=== PATIENT | female | born 1980 | race Caucasian/White ===

== ENCOUNTER 2016-05-17 12:55 | Emergency (ER) | payer OTHER ==
[~2016-05-17] VITALS: Ht 172.7 cm; Wt 110.4 kg
[~2016-05-17 12:55] MED LIST: ALBUAER2 INH; AMIT10TA6 PO; BUPR75TA8 PO; SUMA1INJ5 IM
[2016-05-17 13:04] VITALS: TEMP 36.7; Ht 172.7 cm; Wt 110.4 kg
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
[2016-05-17] MEDS ORDERED: VNTHFA/IN INH (14:01)
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
[2016-05-17] MEDS ORDERED: OXYC1TAB3 PO (14:52)
[2016-05-17 15:09] VITALS: BP 117/76; PULSE 80; O2SAT 100
== END 2016-05-17 15:10 | disposition home or self-care (01) ==
LOC: C.EDB 12:56 → C.EDD 15:10
DX: S06.0X0A Concussion without loss of consciousness, initial encounter (principal); M54.2 Cervicalgia; V43.52XA Car driver injured in collision with other type car in traffic accident, initial encounter; J45.909 Unspecified asthma, uncomplicated; K82.9 Disease of gallbladder, unspecified; F17.210 Nicotine dependence, cigarettes, uncomplicated; Z79.899 Other long term (current) drug therapy

== ENCOUNTER 2016-11-16 13:13 | Emergency (ER) | payer OTHER ==
[~2016-11-16] VITALS: Ht 172.7 cm; Wt 107.0 kg
[~2016-11-16 13:13] MED LIST changes: -ALBUAER2 INH; +OXYC1TAB3 PO; +VNTHFA/IN INH
[2016-11-16 13:15] VITALS: TEMP 36.5; Ht 172.7 cm; Wt 107.0 kg
--- NOTE | 2016-11-16 13:32 | EMERGENCY ROOM VISIT NOTE ---
History Report prepared by Hawa: Thanh Jim Under the Supervision of: Dr. Esvin Caba M.D. First contact with patient: 13:22 Chief Complaint: BITE Stated Complaint: SPIDER BITE-WORK RELATED INJURY History of Present Illness The patient is a 36 year old female who presents to the Emergency Room with complaints of a constant rash to the left calf that occurred two days ago. The patient states that she was getting ready to go to break at work and received a call. She reports that she received a call and during the call she was bit. The patient notes that she rubbed her legs together, and it immediately turned red. She states that she was not able to identify what bit her, but she presumes it was a spider. She denies being bit by a tick. The patient reports that it started to swell and was warm. She states that she went to [facility] and was given a steroid injection and was placed on Cephalexin, three times a day, and she just started it last night. The patient reports that it is currently itchy and red. She notes that when she walks, it feels like her calf muscle is being pulled down, and it is tight. The patient states that she is taking Benadryl, but it makes her too sleepy. She reports that she tried using hydrocortisone cream, but when it dries, it gets even itchier. The patient notes that she was bitten by a spider last year, and it caused an infection. She states that her tetanus is up to date. The patient denies a history of diabetes mellitus. Source of History: patient Onset: two days ago Position: leg (left) Quality: other (rash) Timing: constant Note: Associated symptoms: warmth, erythema, calf tenderness, edema, pruritic Denies: tick bite Review of Systems See HPI for pertinent positives & negatives. A total of 10 systems reviewed and were otherwise negative. Past Medical & Surgical Medical Problems: (1) Asthma (2) Bronchitis (3) Gall bladder disease (4) Pneumonia (5) Stomach problems Family History FH: heart disease FH: lung disease FHx: cancer FHx: gallbladder disease Hypertension Social History Smoking Status: Current Every Day Smoker Alcohol Use: none Drug Use: none Marital Status: Housing Status: lives with family Occupation Status: employed Current/Historical Medications Scheduled Amitriptyline Hcl (Elavil), 10 MG PO HS Bupropion Hcl (Wellbutrin), 75 MG PO DAILY Cephalexin Monohydrate (Keflex), 500 MG PO TID Prednisone (Prednisone), 1 TAB PO DAILY Sulfa/Trimethoprim (Bactrim Ds 800MG/160MG), 1 TAB PO BID Scheduled PRN Albuterol Hfa (Ventolin Hfa), 2 PUFFS INH Q6H PRN for Shortness of Breath Cyclobenzaprine Hcl (Flexeril), 10 MG PO HS PRN for Muscle Spasms Sumatriptan Succinate (Sumatriptan Succinate), 6 MG IM UD PRN for Migraine Allergies Coded Allergies: Aspirin (Verified Allergy, Unknown, 05/17/16) Physical Exam Vital Signs Date Time Temp Pulse Resp B/P (MAP) Pulse Ox O2 Delivery O2 Flow Rate FiO2 11/16/16 16:04 72 18 118/66 98 Room Air 11/16/16 15:16 93 18 107/68 96 Room Air 11/16/16 13:15 36.5 115 14 124/83 96 Room Air Physical Exam GENERAL: Patient is in no acute distress. HEENT: No acute trauma, normocephalic atraumatic, mucous membranes moist, no nasal congestion, no scleral icterus. NECK: No stridor, no adenopathy, no meningismus, trachea is midline. LUNGS: Clear to auscultation bilaterally, no wheeze, no rhonchi, breath sounds equal. HEART: Without murmurs gallops or rubs, regular rate and rhythm. ABDOMEN: Soft, nontender, bowel sounds positive, no hernias, no peritonitis. EXTREMITIES: 4 cm erythematous and tender lesion to the left posterior calf. No drainage, mild tenderness to palpate, no fluctuance. The lesion was outlined. NEUROLOGIC: Oriented x 3, no acute motor or sensory deficits, no focal weakness. SKIN: No jaundice, no diaphoresis. Medical Decision & Procedures ER Provider Diagnostic Interpretation: Radiology results as stated below per my review and radiologist interpretation: EXTREMITY NONVASCULAR LIMITED CLINICAL HISTORY: 36 years-old Female presenting with left leg--poss abscess or FB, possible bite. TECHNIQUE: Real-time grayscale ultrasound imaging of the left medial calf at the site of clinical concern was performed. Color Doppler was also performed. COMPARISON: None. FINDINGS: In the medial left calf at the site of clinical concern, no focal fluid collection. No hyperemia. Mild thickening of the subcutaneous tissue may be present. No dilated lymphatics. IMPRESSION: 1. No significant abnormality in the medial left calf. Electronically signed by: Franck Dunham M.D. 11/16/2016 3:13 PM Dictated Date/Time: 11/16/2016 3:11 PM Laboratory Results 11/16/16 13:35 Red Blood Count 4.48, Mean Corpuscular Volume 89.1, Mean Corpuscular Hemoglobin 30.1, Mean Corpuscular Hemoglobin Concent 33.8, Mean Platelet Volume 11.6, Neutrophils (%) (Auto) 84.2, Lymphocytes (%) (Auto) 10.9, Monocytes (%) (Auto) 4.3, Eosinophils (%) (Auto) 0.3, Basophils (%) (Auto) 0.1, Neutrophils # (Auto) 15.15, Lymphocytes # (Auto) 1.97, Monocytes # (Auto) 0.78, Eosinophils # (Auto) 0.06, Basophils # (Auto) 0.01 11/16/16 13:35 Test 11/16/16 13:35 White Blood Count 18.01 K/uL (4.8-10.8) Red Blood Count 4.48 M/uL (4.2-5.4) Hemoglobin 13.5 g/dL (12.0-16.0) Hematocrit 39.9 % (37-47) Mean Corpuscular Volume 89.1 fL (80-100) Mean Corpuscular Hemoglobin 30.1 pg (25-34) Mean Corpuscular Hemoglobin Concent 33.8 g/dl (32-36) Platelet Count 227 K/uL (130-400) Mean Platelet Volume 11.6 fL (7.4-10.4) Neutrophils (%) (Auto) 84.2 % Lymphocytes (%) (Auto) 10.9 % Monocytes (%) (Auto) 4.3 % Eosinophils (%) (Auto) 0.3 % Basophils (%) (Auto) 0.1 % Neutrophils # (Auto) 15.15 K/uL (1.4-6.5) Lymphocytes # (Auto) 1.97 K/uL (1.2-3.4) Monocytes # (Auto) 0.78 K/uL (0.11-0.59) Eosinophils # (Auto) 0.06 K/uL (0-0.5) Basophils # (Auto) 0.01 K/uL (0-0.2) RDW Standard Deviation 45.2 fL (36.4-46.3) RDW Coefficient of Variation 13.8 % (11.5-14.5) Immature Granulocyte % (Auto) 0.2 % Immature Granulocyte # (Auto) 0.04 K/uL (0.00-0.02) Anion Gap 11.0 mmol/L (3-11) Est Creatinine Clear Calc Drug Dose 102.8 ml/min Estimated GFR () 88.1 Estimated GFR (Non- 76.0 BUN/Creatinine Ratio 10.1 (10-20) Calcium Level 9.0 mg/dl (8.5-10.1) Chemistry Specimen Hemolysis Laboratory results reviewed by me. ED Course 1322: The patient was evaluated in room B06. A complete history and physical exam was performed. 1542: Reevaluated the patient. Discussed results and discharge instructions: she verbalized understanding and agreement. The patient is ready for discharge. Medical Decision Differential diagnosis includes: large local reaction, insect or spider bite, cellulitis, abscess There is a moderate leukocytosis at 18,000, this could be consistent with infection or her steroid injection. No anemia. No significant electrolyte abnormality or kidney failure. Left leg ultrasound does not show abscess or foreign body. The patient has a localized cellulitis to the left lower extremity from a presumed insect bite. She is on Keflex. I am going to add Bactrim for the possibility of an MRSA. She also will be on a small dose of prednisone to help with the itching-she does not do well with Benadryl. The patient is to return for fever, vomiting or lack of improvement. She can follow with her doctors office for a recheck next week. She was told to keep her leg elevated whenever possible. Impression Primary Impression: Left leg cellulitis Additional Impression: Insect bite Scribe Attestation The scribe's documentation has been prepared under my direction and personally reviewed by me in its entirety. I confirm that the note above accurately reflects all work, treatment, procedures, and medical decision making performed by me. Departure Information Dispostion Home / Self-Care Prescriptions Prednisone (Prednisone) 20 Mg Tab 1 TAB PO DAILY for 4 Days, #4 TAB Prov: Esvin Caba M.D. 11/16/16 Sulfa/Trimethoprim (Bactrim Ds 800MG/160MG) Tab 1 TAB PO BID for 10 Days, #20 TAB Prov: Esvin Caba M.D. 11/16/16 Referrals Arnold Bosch M.D.(ARIEL) (PCP) Forms HOME CARE DOCUMENTATION FORM, IMPORTANT VISIT INFORMATION, Work Instructions Patient Instructions My [facility] Additional Instructions continue the kefelx add bactrim 2x per day for 10 days start probiotic otc while on the antibiotics prednisone daily for 4 more days try to keep the leg elevated return for fever, worsening redness or fever Problem Qualifiers
[2016-11-16] MEDS ORDERED: CYCL10TA6 PO (13:51)
[2016-11-16] MEDS ORDERED: CEPH500C2 PO (13:51)
[2016-11-16 14:33] LABS: BASO % 0.1 %; BASO ABS # 0.01 K/uL (0-0.2); COMPLETE YES; EOS % 0.3 %; HEMATOCRIT 39.9 % (37-47); IG% 0.2 %; LYMPH % 10.9 %; LYMPH ABS # 1.97 K/uL (1.2-3.4); MEAN CELL VOLUME 89.1 fL (80-100); MEAN CORPUSCULAR HEMOGLOBIN 30.1 pg (25-34); MEAN CORPUSCULAR HGB CONC 33.8 g/dl (32-36); MEAN PLATELET VOLUME 11.6 fL (7.4-10.4); MONO % 4.3 %; NEUT % 84.2 %; PLATELET COUNT 227 K/uL (130-400); RED BLOOD COUNT 4.48 M/uL (4.2-5.4); WHITE BLOOD COUNT 18.01 K/uL (4.8-10.8)
[2016-11-16 15:06] LABS: BUN/CREATININE RATIO 10.1 (10-20); CREATININE 0.95 mg/dl (0.60-1.20); POTASSIUM 3.8 mmol/L (3.5-5.1)
--- NOTE | 2016-11-16 15:14 | DIAGNOSTIC IMAGING REPORT ---
EXTREMITY NONVASCULAR LIMITED CLINICAL HISTORY: 36 years-old Female presenting with left leg--poss abscess or FB, possible bite. TECHNIQUE: Real-time grayscale ultrasound imaging of the left medial calf at the site of clinical concern was performed. Color Doppler was also performed. COMPARISON: None. FINDINGS: In the medial left calf at the site of clinical concern, no focal fluid collection. No hyperemia. Mild thickening of the subcutaneous tissue may be present. No dilated lymphatics. IMPRESSION: 1. No significant abnormality in the medial left calf. Electronically signed by: Franck Dunham M.D. 11/16/2016 3:13 PM Dictated Date/Time: 11/16/2016 3:11 PM
[2016-11-16] MEDS ORDERED: PRED20TA PO (15:52)
[2016-11-16] MEDS ORDERED: SULF800T23 PO (15:52)
[2016-11-16 16:04] VITALS: BP 118/66; PULSE 72; O2SAT 98
== END 2016-11-16 16:30 | disposition home or self-care (01) ==
LOC: C.EDB 13:14
DX: L03.116 Cellulitis of left lower limb (principal); W57.XXXA Bitten or stung by nonvenomous insect and other nonvenomous arthropods, initial encounter; J45.909 Unspecified asthma, uncomplicated; Z82.49 Family history of ischemic heart disease and other diseases of the circulatory system; F17.200 Nicotine dependence, unspecified, uncomplicated

== ENCOUNTER 2017-04-13 22:38 | Emergency (ER) | payer OTHER ==
[~2017-04-13] VITALS: Ht 172.7 cm; Wt 105.8 kg
[~2017-04-13 22:38] MED LIST changes: +CEPH500C2 PO; +CYCL10TA6 PO; -OXYC1TAB3 PO
[2017-04-13 22:39] VITALS: TEMP 36.4; Ht 172.7 cm; Wt 105.8 kg
[2017-04-13] MEDS ORDERED: ALBUT/IPRATROP 3MG/0.5MG NEB 3 ML VIAL INH STA ×2 (22:44→23:57)
[2017-04-13] MEDS ORDERED: KETOROLAC TROMETHAMINE 30 MG/ML VIAL IV STA (22:44)
[2017-04-13] MEDS ORDERED: DEXAMETHASONE **PF** INJ 10 MG/ML VIAL IV ONE (22:45)
--- NOTE | 2017-04-13 23:00 | DIAGNOSTIC IMAGING REPORT ---
CHEST ONE VIEW PORTABLE CLINICAL HISTORY: Atypical chest pain COMPARISON STUDY: 05/17/2016 FINDINGS: The cardiac and mediastinal contours are normal. There is no evidence of focal pulmonary consolidation. There is no evidence of failure. No pleural effusions are visualized.[ IMPRESSION: No active disease in the chest. Electronically signed by: Derik Fan M.D. 04/13/2017 10:58 PM Dictated Date/Time: 04/13/2017 10:58 PM
[2017-04-13 23:04] VITALS: O2SAT 94
[2017-04-13 23:12] LABS: BASO % 0.4 %; BASO ABS # 0.04 K/uL (0-0.2); COMPLETE YES; IG% 0.1 %; LYMPH % 26.6 %; LYMPH ABS # 2.43 K/uL (1.2-3.4); MEAN CELL VOLUME 87.4 fL (80-100); MEAN CORPUSCULAR HEMOGLOBIN 30.3 pg (25-34); MEAN CORPUSCULAR HGB CONC 34.7 g/dl (32-36); MEAN PLATELET VOLUME 11.1 fL (7.4-10.4); MONO % 10.2 %; NEUT % 60.7 %; PLATELET COUNT 192 K/uL (130-400); RED BLOOD COUNT 4.35 M/uL (4.2-5.4); WHITE BLOOD COUNT 9.14 K/uL (4.8-10.8)
[2017-04-13 23:20] LABS: POINT OF CARE TROPONIN I < 0.030 ng/ml (0-0.045)
[2017-04-13 23:31] LABS: ALT/SGPT 24 U/L (12-78); BLOOD UREA NITROGEN 10 mg/dl (7-18); BUN/CREATININE RATIO 10.9 (10-20); CALCIUM 8.5 mg/dl (8.5-10.1); CARBON DIOXIDE 25 mmol/L (21-32); CHLORIDE 107 mmol/L (98-107); CREATININE 0.94 mg/dl (0.60-1.20); GLUCOSE 100 mg/dl (70-99); POTASSIUM 3.3 mmol/L (3.5-5.1); SODIUM 139 mmol/L (136-145)
[2017-04-13 23:34] LABS: ALKALINE PHOSPHATASE 78 U/L (45-117); AST/SGOT 14 U/L (15-37)
[2017-04-13 23:37] LABS: PREG INTERNAL NEGATIVE QC NEG CLEAR BACKGROUND; PREG INTERNAL POSITIVE QC POS CONTROL LINE
[2017-04-13] MEDS ORDERED: POTASSIUM CHLORIDE 10 MEQ TABCR PO STA (23:38)
[2017-04-13] MEDS ORDERED: LIDOCAINE HCL 2% VISC SOLN 20 ML UDC MT STA (23:59)
[2017-04-14] MEDS ORDERED: ACETAMINOPHEN 500 MG TAB PO ONE (00:41)
[2017-04-14] MEDS ORDERED: ACETAMINOPHEN 500 MG TAB PO STA (01:12)
[2017-04-14] MEDS ORDERED: ALBUTEROL HFA 8 GM INHALER INH STA (01:26)
[2017-04-14] MEDS ORDERED: LIDO2SOL19 PO (01:28)
[2017-04-14] MEDS ORDERED: PRED50TA PO (01:28)
[2017-04-14 01:59] VITALS: BP 90/53; PULSE 76; O2SAT 95
--- NOTE | 2017-04-14 02:09 | EMERGENCY ROOM VISIT NOTE ---
History First contact with patient: 22:41 Chief Complaint: COUGH Stated Complaint: SEVERE COUGH, CHEST PAIN, SOB, BACK PAIN Nursing Triage Summary: pt c/o cough since sunday, chest congestion History of Present Illness The patient is a 37 year old female who presents to the Emergency Room with complaints of cough, congestion, chest pain, dyspnea for the past week who was seen at urgent care. Patient states they did nothing for her. Patient continues to smoke. She is not on control. No recent travel. Patient states the coughing makes the chest pain worse. No fever. She's had bronchitis before and has asthma. Patient denies abdominal pain, vomiting, diarrhea, earache, neck stiffness. She is tolerate by mouth fluids and food. Review of Systems See HPI for pertinent positives & negatives. A total of 10 systems reviewed and were otherwise negative. Past Medical/Surgical History Medical Problems: (1) Asthma (2) Bronchitis (3) Gall bladder disease (4) Pneumonia (5) Stomach problems Family History FH: heart disease FH: lung disease FHx: cancer FHx: gallbladder disease Hypertension Social History Smoking Status: Current Some Day Smoker Alcohol Use: none Drug Use: none Marital Status: Housing Status: lives with family Occupation Status: employed Current/Historical Medications Scheduled Amitriptyline Hcl (Elavil), 10 MG PO HS Bupropion Hcl (Wellbutrin), 75 MG PO DAILY Cephalexin Monohydrate (Keflex), 500 MG PO TID Lidocaine Hcl (Mouth-Throat) (Lidocaine Viscous), 10 ML PO TID Prednisone (Prednisone), 50 MG PO DAILY Scheduled PRN Albuterol Hfa (Ventolin Hfa), 2 PUFFS INH Q6H PRN for Shortness of Breath Cyclobenzaprine Hcl (Flexeril), 10 MG PO HS PRN for Muscle Spasms Sumatriptan Succinate (Sumatriptan Succinate), 6 MG IM UD PRN for Migraine Physical Exam Vital Signs Date Time Temp Pulse Resp B/P (MAP) Pulse Ox O2 Delivery O2 Flow Rate FiO2 04/14/17 01:59 76 18 90/53 95 04/14/17 01:00 100 18 96/60 95 Nasal Cannula 2.0 04/14/17 00:06 88 21 112/64 100 Nebulizer 04/13/17 23:14 105 04/13/17 23:05 94 Room Air 04/13/17 23:04 94 Nasal Cannula 12/22/17 22:39 36.4 108 20 125/84 94 Room Air Physical Exam VITALS: Vitals are noted on the nurse's note and reviewed by myself. Vital signs stable. GENERAL: White female coughing, in no acute distress, nondiaphoretic, well- developed well-nourished. SKIN: The skin was without rashes, erythema, edema, or bruising. There is no tenting of the skin. Capillary reflex less than 2 seconds. HEAD: Normocephalic atraumatic. EARS: External auditory canals clear, tympanic membranes pearly cole without erythema or effusion bilaterally. EYES: Pupils equal round and reactive to light and accommodation. Conjunctivae without injection, sclerae without icterus. Extraocular movements intact. NOSE: Patent, turbinates without inflammation or discharge. No sinus tenderness. MOUTH: Mucous membranes moist. Pharynx without erythema or exudate. Uvula midline. Airway patent. Tongue does not deviate. NECK: Supple without nuchal rigidity. No lymphadenopathy. No thyromegaly. Cervical spine is nontender. No JVD. HEART: Regular rate and rhythm without murmurs gallops or rubs. LUNGS: Diffuse end expiratory wheezes, without rales or rhonchi. No dullness to percussion. No retractions or accessory muscle use. ABDOMEN: Positive bowel sounds x 4. Normal tympanic percussion. Soft, nontender, without masses or organomegaly. Anthony sign negative. No guarding or rebound tenderness. MUSCULOSKELETAL: No muscle atrophy, erythema, or edema noted. NEURO: Patient was alert and oriented to person place and time. Normal sensation to light and sharp touch. No focal neurological deficits. Medical Decision & Procedures Laboratory Results 04/13/17 22:58 Red Blood Count 4.35, Mean Corpuscular Volume 87.4, Mean Corpuscular Hemoglobin 30.3, Mean Corpuscular Hemoglobin Concent 34.7, Mean Platelet Volume 11.1, Neutrophils (%) (Auto) 60.7, Lymphocytes (%) (Auto) 26.6, Monocytes (%) (Auto) 10.2, Eosinophils (%) (Auto) 2.0, Basophils (%) (Auto) 0.4, Neutrophils # (Auto ) 5.55, Lymphocytes # (Auto) 2.43, Monocytes # (Auto) 0.93, Eosinophils # (Auto ) 0.18, Basophils # (Auto) 0.04 04/13/17 22:58 Test 04/13/17 22:58 04/13/17 23:00 04/14/17 01:01 White Blood Count 9.14 K/uL (4.8-10.8) Red Blood Count 4.35 M/uL (4.2-5.4) Hemoglobin 13.2 g/dL (12.0-16.0) Hematocrit 38.0 % (37-47) Mean Corpuscular Volume 87.4 fL (80-100) Mean Corpuscular Hemoglobin 30.3 pg (25-34) Mean Corpuscular Hemoglobin Concent 34.7 g/dl (32-36) Platelet Count 192 K/uL (130-400) Mean Platelet Volume 11.1 fL (7.4-10.4) Neutrophils (%) (Auto) 60.7 % Lymphocytes (%) (Auto) 26.6 % Monocytes (%) (Auto) 10.2 % Eosinophils (%) (Auto) 2.0 % Basophils (%) (Auto) 0.4 % Neutrophils # (Auto) 5.55 K/uL (1.4-6.5) Lymphocytes # (Auto) 2.43 K/uL (1.2-3.4) Monocytes # (Auto) 0.93 K/uL (0.11-0.59) Eosinophils # (Auto) 0.18 K/uL (0-0.5) Basophils # (Auto) 0.04 K/uL (0-0.2) RDW Standard Deviation 43.0 fL (36.4-46.3) RDW Coefficient of Variation 13.3 % (11.5-14.5) Immature Granulocyte % (Auto) 0.1 % Immature Granulocyte # (Auto) 0.01 K/uL (0.00-0.02) Anion Gap 7.0 mmol/L (3-11) Est Creatinine Clear Calc Drug Dose 102.3 ml/min Estimated GFR () 88.6 Estimated GFR (Non- 76.4 BUN/Creatinine Ratio 10.9 (10-20) Calcium Level 8.5 mg/dl (8.5-10.1) Total Bilirubin 0.3 mg/dl (0.2-1) Direct Bilirubin < 0.1 mg/dl (0-0.2) Aspartate Amino Transf (AST/SGOT) 14 U/L (15-37) Alanine Aminotransferase (ALT/SGPT) 24 U/L (12-78) Alkaline Phosphatase 78 U/L (45-117) Total Protein 6.9 gm/dl (6.4-8.2) Albumin 3.6 gm/dl (3.4-5.0) Human Chorionic Gonadotropin, Qual NEG (NEG) Bedside D-Dimer 252 ng/mlFEU (0-450) Bedside Troponin I < 0.030 ng/ml (0-0.045) Medications Administered Medications (Trade) Dose Ordered Sig/Joon Route Start Time Stop Time Status Last Admin Dose Admin Albuterol/ Ipratropium (Duoneb) 3 ml NOW STAT INH 04/13/17 22:44 04/13/17 22:47 DC 04/13/17 23:00 3 ML Dexamethasone Sodium Phosphate (Dexamethasone Inj Pf) 10 mg NOW ONCE IV 04/13/17 22:45 04/13/17 22:48 DC 04/13/17 22:59 10 MG Ketorolac Tromethamine (Toradol Inj) 30 mg NOW STAT IV 04/13/17 22:44 04/13/17 22:47 DC 04/13/17 23:00 30 MG Potassium Chloride (Klor-Con M10) 20 meq NOW STAT PO 04/13/17 23:38 04/13/17 23:39 DC 04/14/17 00:00 20 MEQ Albuterol/ Ipratropium (Duoneb) 3 ml NOW STAT INH 04/13/17 23:57 04/13/17 23:59 DC 04/14/17 00:04 3 ML Lidocaine HCl (Viscous Lidocaine 2% Soln) 10 ml NOW STAT MT 04/13/17 23:59 04/14/17 00:00 DC 04/14/17 00:04 10 ML Acetaminophen (Tylenol Tab) 1,000 mg STK-MED ONCE PO 04/14/17 00:41 04/14/17 00:42 DC 04/14/17 00:44 1,000 MG Albuterol (Ventolin Hfa Inhaler) 2 puffs ONE STAT INH 04/14/17 01:26 04/14/17 01:27 DC 04/14/17 01:52 2 PUFFS ED Course Prior records/ancillary studies reviewed. Triage Nursing notes reviewed. The patient's history was concerning for cough, congestion and chest pain. Differential diagnosis: Etiologies such as cardiac ischemia, aortic dissection, pulmonary embolism, pneumonia, pneumothorax, musculoskeletal, infections, pericarditis, myocarditis , esophageal rupture, gastrointestinal, as well as others were entertained. Physical examination: As above. ER treatment provided: Nebulizer, Decadron, Toradol On reassessment the patient felt better. Diagnostic interpretation by me: The electrocardiogram was negative for pathologic change. Normal sinus, normal intervals, no acute ST-T wave changes. Impression normal sinus rhythm interpreted by myself The labs revealed negative troponin 2 greater than 2 hours apart Imaging studies: Chest x-ray as above CLINICAL HISTORY: Atypical chest pain COMPARISON STUDY: 05/17/2016 FINDINGS: The cardiac and mediastinal contours are normal. There is no evidence of focal pulmonary consolidation. There is no evidence of failure. No pleural effusions are visualized.[ IMPRESSION: No active disease in the chest. Electronically signed by: Derik Fan M.D. Exam and history seem consistent with asthmatic bronchitis with pleurisy causing her chest pain. Patient felt much better after being medicated as above. She is strongly encouraged to quit smoking. She is advised to take her medications as directed, rest, stay well-hydrated and to follow-up family care in a few days or here in the ER sooner for chest pain, difficulty breathing, worsening signs or symptoms or as needed. Patient had a normal EKG. 2 negative troponins. Negative d-dimer By the evaluation outlined above emergent etiologies such as cardiac ischemia, aortic dissection, pulmonary embolism, pneumonia, pneumothorax, pericarditis, myocarditis, gastrointestinal, as well as others were deemed relatively unlikely. The pt informed about the findings as listed above. All questions were answered and pleased with the treatment. Return instructions were outlined and the patient was discharged in stable condition. Outpatient prescription management: Prednisone, viscous lidocaine Referral: The patient was referred back to primary care physician for follow-up in 2 to 3 days for a recheck of the current condition. Case reviewed with my attending Medical Decision As above Impression Primary Impression: Asthmatic bronchitis Additional Impressions: Pleurisy Chest pain Departure Information Dispostion Home / Self-Care Condition GOOD Prescriptions Prednisone (Prednisone) 50 Mg Tab 50 MG PO DAILY for 4 Days, #4 TAB Prov: Lotus Up .JESSICA 04/14/17 Lidocaine Hcl (Mouth-Throat) (LIDOCAINE VISCOUS) 2 % Myesha 10 ML PO TID for 6 Days, #100 ML Prov: Lotus Up PA-C 04/14/17 Forms HOME CARE DOCUMENTATION FORM, Work Instructions, Return To Work: 2 days IMPORTANT VISIT INFORMATION Patient Instructions My [facility] Additional Instructions Albuterol Inhaler: Take 2 puffs four times daily for five days, then as needed. Prednisone 50mg: Once daily until the prescription is finished. It is best to take this earlier in the day as some patients note occasional difficulty falling asleep when taken in the late evening. Acetaminophen(Tylenol) may be used for fever or pain. Use 1000mg every six hours as needed. Avoid using more than 3000mg in a 24 hour period. (AND/OR) Ibuprofen(Motrin, Advil) may be used for fever or pain. Use 600mg every six hours as needed. Take with food. Avoid using more than 2400mg in a 24 hour period. Do not use 2400mg per day for more than three consecutive days without physician direction. Prolonged inappropriate use can lead to stomach upset or ulcers. Afrin nasal spray: 2-3 sprays to each nostril twice daily as needed for congestion. Do not use for more than 3-4 days because it can lead to worsening rebound congestion. Pseudoephedrine(Sudaphed): 30-60mg every 6 hours as needed for nasal congestion. Do not take this with other stimulant products or supplements. Rest and drink plenty of fluids. Controlling your fever with Tylenol and Ibuprofen as above will make you feel better. Wash your hands after nose blowing, sneezing, or coughing. Most germs are spread through contact, therefore improper hygiene may result in your close contacts and loved ones becoming ill just like you. Continue current medications. Return to the ER for severe headache, neck stiffness, chest pain, difficulty breathing, fevers, vomiting, worsening of your condition, or as needed. Follow up with your primary physician this week for a recheck of your current condition. Work Instructions Return To Work: 2 days Problem Qualifiers Primary Impression: Asthmatic bronchitis Asthma severity: unspecified severity Asthma persistence: unspecified Asthma complication type: with acute exacerbation Qualified Codes: J45.901 - Unspecified asthma with (acute) exacerbation
== END 2017-04-14 02:00 | disposition home or self-care (01) ==
LOC: C.EDB 22:38 → C.EDA 04-14 02:00
DX: J45.909 Unspecified asthma, uncomplicated (principal); R09.1 Pleurisy; R07.9 Chest pain, unspecified; K82.9 Disease of gallbladder, unspecified; F17.200 Nicotine dependence, unspecified, uncomplicated; Z87.19 Personal history of other diseases of the digestive system; Z79.899 Other long term (current) drug therapy; Z82.49 Family history of ischemic heart disease and other diseases of the circulatory system; Z80.9 Family history of malignant neoplasm, unspecified; Z83.79 Family history of other diseases of the digestive system

== ENCOUNTER 2017-04-17 18:32 | Emergency (ER) | payer OTHER ==
[~2017-04-17] VITALS: Ht 172.7 cm; Wt 108.2 kg
[~2017-04-17 18:32] MED LIST changes: +LIDO2SOL19 PO; +PRED50TA PO
[2017-04-17 18:38] VITALS: BP 134/83; PULSE 89; TEMP 36.5; O2SAT 96; Ht 172.7 cm; Wt 108.2 kg
--- NOTE | 2017-04-17 19:39 | EMERGENCY ROOM VISIT NOTE ---
History Report prepared by Hawa: Ignacio Valentin Under the Supervision of: Dr. Werner Mantilla M.D. First contact with patient: 19:30 Chief Complaint: RESPIRATORY PROBLEMS Stated Complaint: SOB,CHEST PAIN,PERSISTANT COUGH Nursing Triage Summary: pt reports I was seen here a few days ago and given prednisone cough and mucus remain yellow and cough continues History of Present Illness The patient is a 37 year old white female with a past medical history of seasonal asthma who presents to the ED with a cc of persistent respiratory problems beginning about a week ago. Positive shortness of breath, cough with phlegm, vomiting. Negative coughing up blood. She states that she was seen here a few days ago for the respiratory problems, and was given a round of Prednisone , which she has finished. She adds that she has tried Mucinex and a Ventolin inhaler without any relief of her symptoms. The patient notes that when she coughs, she gets back pain with some numbness and tingling, as well as some chest pain. She does smoke cigarettes. The patient is not on control. Source of History: patient Onset: A week ago Position: other (global - respiratory problems) Symptom Intensity: Ventolin inhaler not working Timing: other (persistent) Associated Symptoms: + cough (no blood), + chest pain (when coughing), + SOB , + vomiting, + back pain (when coughing), + numbness (and tingling in back) Note: No other associated symptoms noted. Review of Systems See HPI for pertinent positives and negatives. A total of ten systems were reviewed and were otherwise negative. Past Medical & Surgical Medical Problems: (1) Asthma (2) Bronchitis (3) Gall bladder disease (4) Pneumonia (5) Stomach problems Family History FH: heart disease FH: lung disease FHx: cancer FHx: gallbladder disease Hypertension Social History Smoking Status: Current Every Day Smoker Alcohol Use: none Drug Use: none Marital Status: Housing Status: lives with family Occupation Status: employed Current/Historical Medications Scheduled Amitriptyline Hcl (Elavil), 10 MG PO HS Azithromycin (Zithromax), 250 MG PO DAILY Bupropion Hcl (Wellbutrin), 75 MG PO DAILY Cephalexin Monohydrate (Keflex), 500 MG PO TID Lidocaine Hcl (Mouth-Throat) (Lidocaine Viscous), 10 ML PO TID Prednisone (Prednisone), 50 MG PO DAILY Prednisone (Prednisone), 50 MG PO DAILY Scheduled PRN Albuterol Hfa (Ventolin Hfa), 2 PUFFS INH Q6H PRN for Shortness of Breath Cyclobenzaprine Hcl (Flexeril), 10 MG PO HS PRN for Muscle Spasms Hydrocodone W/ Homatropine (Hycodan 5/1.5MG 5 Ml), 5 ML PO Q6H PRN for Cough Sumatriptan Succinate (Sumatriptan Succinate), 6 MG IM UD PRN for Migraine Allergies Coded Allergies: Aspirin (Verified Allergy, Unknown, 05/17/16) Physical Exam Vital Signs Date Time Temp Pulse Resp B/P (MAP) Pulse Ox O2 Delivery O2 Flow Rate FiO2 04/17/17 18:38 36.5 89 20 134/83 96 Room Air Physical Exam GENERAL: Awake, alert, well-appearing, NAD HENT: Normocephalic, atraumatic. EYES: Normal conjunctiva. Sclera non-icteric. NECK: Supple. No nuchal rigidity. FROM. RESPIRATORY: Some trace crackles bilaterally. No rhonchi, wheezing, no stridor. CARDIAC: RRR, no MRG ABDOMEN: Soft, NTND, BS+ MSK: No chest wall TTP, no LE edema. No Homans sign. NEURO: GCS 15, CN 2-12 intact, moves all 4s on command SKIN: No rash or jaundice noted. Medical Decision & Procedures ER Provider Diagnostic Interpretation: X-ray: Per my interpretation, radiologist review. CHEST ONE VIEW PORTABLE CLINICAL HISTORY: Cough. COMPARISON STUDY: Chest radiograph April 13, 2017. FINDINGS: Lung volumes are normal. There is no pneumothorax or pleural effusion. No consolidation to suggest pneumonia. Cardiomediastinal silhouette is stable. Pulmonary vascularity is normal. Appearance of the chest is unchanged. IMPRESSION: No acute cardiopulmonary findings. Electronically signed by: Bandar Tay M.D. 04/17/2017 8:26 PM Dictated Date/Time: 04/17/2017 8:26 PM Medications Administered Medications (Trade) Dose Ordered Sig/Joon Route Start Time Stop Time Status Last Admin Dose Admin Dexamethasone Sodium Phosphate (Dexamethasone Inj Pf) 10 mg ONE STAT PO 04/17/17 19:43 04/17/17 19:45 DC 04/17/17 19:59 10 MG Albuterol/ Ipratropium (Duoneb) 3 ml ONE STAT INH 04/17/17 19:43 04/17/17 19:45 DC 04/17/17 19:58 3 ML Ketorolac Tromethamine (Toradol Inj) 60 mg NOW STAT IM 04/17/17 19:43 04/17/17 19:45 DC 04/17/17 19:58 60 MG Acetaminophen (Tylenol Tab) 1,000 mg NOW STAT PO 04/17/17 19:43 04/17/17 19:45 DC 04/17/17 19:59 1,000 MG Menthol (Nice Neela) 1 neela NOW STAT PO 04/17/17 19:43 04/17/17 19:45 DC 04/17/17 19:59 1 NEELA Azithromycin (Zithromax Tab) 500 mg NOW ONCE PO 04/17/17 20:00 04/17/17 20:01 DC 04/17/17 19:59 500 MG ECG Indication: SOB/dyspnea Rate (beats per minute): 84 Rhythm: normal sinus Findings: other (normal intervals, normal axis, no STS changes or TWI) Change: no significant change ED Course 193: The patient was evaluated in room B8. A complete history and physical exam was performed. Medical Decision The patient is a 37 year old white female with a past medical history of seasonal asthma who presents to the ED with a cc of persistent respiratory problems beginning about a week ago. Positive shortness of breath, cough with phlegm, vomiting. Negative coughing up blood. Differential diagnosis: Etiologies such as infections, reactive airway disease, pneumonia, pneumothorax , COPD, CHF, cardiac ischemia, pulmonary embolism, musculoskeletal, gastrointestinal, as well as others were entertained. Patient was seen and evaluated at the bedside. Patient has been complaining some mild chest pain shortness of breath. Patient does have a known history of asthma as well as recurrent bouts of bronchitis. Patient does complain of some purulent productive sputum that is been ongoing for about one weeks time. Patient was recently seen and evaluated here in the emergency department. Patient has had no major change in her symptoms but they just have not gotten better. At the time of initial evaluation a week ago the patient did have a normal d-dimer and troponin. Given that she had a fairly extensive workup prior without much change in her symptoms a repeat chest x-ray and EKG were performed. Patient's EKG looks unchanged patient does not show any signs of my interpretation of right heart strain. Patient is PERC ?1 as surgery 4 weeks prior. Wells 1.5 given recent surgery. Low risk. Less likely PE. Given the patient's history and physical exam I do not believe that she has ACS especially in light of her nonischemic EKG. Patient likely has an element of bronchitis given her chronic smoking history and productive sputum. Patient's chest x-ray was fairly unremarkable. Patient did not show evidence of overt pneumonia, pneumothorax, or pleural effusion. Patient was treated symptomatically. Patient was counseled on smoking cessation. Patient was given antibiotics for home. Patient was deemed suitable for outpatient follow- up and treatment. Patient was given strict follow-up, discharge, and return precautions. All questions were answered. Patient was deemed suitable for outpatient follow-up at this time. Patient agreed with the plan of care and was safely discharged home. Medication Reconcilliation Current Medication List: was personally reviewed by me Blood Pressure Screening Patient's blood pressure: Elevated blood pressure Blood pressure disposition: Elevated BP felt to be situational Impression Primary Impression: Encounter for smoking cessation counseling Additional Impression: Bronchitis Scribe Attestation The scribe's documentation has been prepared under my direction and personally reviewed by me in its entirety. I confirm that the note above accurately reflects all work, treatment, procedures, and medical decision making performed by me. Departure Information Dispostion Home / Self-Care Prescriptions Prednisone (PREDNISONE) 50 Mg Tab 50 MG PO DAILY for 4 Days, #4 TAB Prov: Werner Mantilla M.D. 04/17/17 Hydrocodone W/ Homatropine (HYCODAN 5/1.5MG 5 ML) 1 Syp Syp 5 ML PO Q6H Y for Cough, #60 ML Prov: Werner Mantilla M.D. 04/17/17 Azithromycin (Zithromax) 250 Mg Tab 250 MG PO DAILY, #4 TAB Prov: Werner Mantilla M.D. 04/17/17 Referrals Arnold Bosch M.D.([facility]) (PCP) Patient Instructions Bronchitis Acute, ED Smoking Cessation, My [facility] Additional Instructions Please return to the emergency department if you have worsening or recurrent symptoms not amenable to at-home treatment. Please call for a follow-up appointment with her primary care physician. Please take your medications as prescribed. If you have other concerns and/or complaints please feel free to also call your primary care physician's office or return the ED for further evaluation, management, and treatment. Please consider smoking cessation. You may take tylenol 1000 mg every 6 hours as needed for pain. Take the steroids preferably with food in the morning. You may also take a Pepcid or famotidine to help with GI upset Take your medications as prescribed. If taking an antibiotic consider taking a probiotic and/or eating yogurt, but at the least, please take with food as it can cause upset stomach. If culture results are not available at discharge, if they are positive for concern of infection, you will be informed of the results as soon as they are available. If you were seen between 11pm and 7AM all radiology reads will be re-read by our in house staff. If any major discrepancies are discovered, you will be notified. You have been examined and treated today on an emergency basis only. This is not a substitute for, or an effort to provide, complete comprehensive medical care. It is impossible to recognize and treat all injuries or illnesses in a single emergency department visit. It is therefore important that you follow up closely with [facility], your PCP, and/or your specialist(s). Call as soon as possible for an appointment. Thank you for your time and consideration. I look forward to speaking with you again soon. Please don't hesitate to call us if you have any questions. Problem Qualifiers
[2017-04-17] MEDS ORDERED: ACETAMINOPHEN 500 MG TAB PO STA (19:43)
[2017-04-17] MEDS ORDERED: DEXAMETHASONE **PF** INJ 10 MG/ML VIAL PO STA (19:43)
[2017-04-17] MEDS ORDERED: COUGH DROP (SUGAR FREE) LOZ 24 LOZ/1 BOX PO STA (19:43)
[2017-04-17] MEDS ORDERED: ALBUT/IPRATROP 3MG/0.5MG NEB 3 ML VIAL INH STA (19:43)
[2017-04-17] MEDS ORDERED: KETOROLAC TROMETHAMINE 60 MG/2 ML VIAL IM STA (19:43)
[2017-04-17] MEDS ORDERED: AZITHROMYCIN 250 MG TAB PO ONE (20:00)
[2017-04-17] MEDS ORDERED: AZIT250T PO (20:25)
[2017-04-17] MEDS ORDERED: HYDR5SYP11 PO (20:25)
--- NOTE | 2017-04-17 20:28 | DIAGNOSTIC IMAGING REPORT ---
CHEST ONE VIEW PORTABLE CLINICAL HISTORY: Cough. COMPARISON STUDY: Chest radiograph April 13, 2017. FINDINGS: Lung volumes are normal. There is no pneumothorax or pleural effusion. No consolidation to suggest pneumonia. Cardiomediastinal silhouette is stable. Pulmonary vascularity is normal. Appearance of the chest is unchanged. IMPRESSION: No acute cardiopulmonary findings. Electronically signed by: Bandar Tay M.D. 04/17/2017 8:26 PM Dictated Date/Time: 04/17/2017 8:26 PM
[2017-04-17] MEDS ORDERED: PRED50TA PO (20:29)
== END 2017-04-17 20:50 | disposition home or self-care (01) ==
LOC: C.EDB 18:33
DX: J40 Bronchitis, not specified as acute or chronic (principal); Z71.6 Tobacco abuse counseling; J45.909 Unspecified asthma, uncomplicated; K82.9 Disease of gallbladder, unspecified; Z87.01 Personal history of pneumonia (recurrent); Z82.49 Family history of ischemic heart disease and other diseases of the circulatory system; Z83.6 Family history of other diseases of the respiratory system; Z80.9 Family history of malignant neoplasm, unspecified; Z83.79 Family history of other diseases of the digestive system; F17.210 Nicotine dependence, cigarettes, uncomplicated; Z79.899 Other long term (current) drug therapy

== ENCOUNTER 2017-09-02 22:23 | Emergency (ER) | payer OTHER ==
[~2017-09-02] VITALS: Ht 172.7 cm; Wt 97.2 kg
[~2017-09-02 22:23] MED LIST changes: +AZIT250T PO; -LIDO2SOL19 PO; -PRED50TA PO
[2017-09-02 22:25] VITALS: TEMP 36.3; Ht 172.7 cm; Wt 97.2 kg
--- NOTE | 2017-09-02 23:01 | DIAGNOSTIC IMAGING REPORT ---
RIGHT KNEE 3 VIEWS HISTORY: right knee pain COMPARISON: None. FINDINGS: There is no fracture or dislocation. Soft tissues are unremarkable. No radiopaque foreign bodies. No significant knee effusion. IMPRESSION: No fractures within the right knee. Electronically signed by: Shane Rush M.D. 09/02/2017 10:59 PM Dictated Date/Time: 09/02/2017 10:59 PM
[2017-09-02] MEDS ORDERED: FLUT1INH INH (23:16)
[2017-09-02] MEDS ORDERED: ACETAMINOPHEN 500 MG TAB PO STA (23:21)
--- NOTE | 2017-09-02 23:52 | EMERGENCY ROOM VISIT NOTE ---
History First contact with patient: 22:28 Chief Complaint: KNEEPAIN Stated Complaint: RT KNEE SPRAIN History of Present Illness The patient is a 37 year old female who presents to the Emergency Room with complaints of right knee pain. The patient reports that she has a history of a knee sprain approximately 20 years ago. She states that this evening, she developed pain on the inside of her right knee. She reports that the pain feels like a charley horse. She rates her discomfort a 9/10. She states the pain started approximately 1.5 hours ago. She does not see an orthopedist for her knee pain. She denies any numbness or weakness. She denies any recent injury to the knee. Review of Systems A complete 6 point review of systems was reviewed with the patient with pertinent positives and negatives as per history of present illness. All else were negative. Past Medical/Surgical History Medical Problems: (1) Asthma (2) Bronchitis (3) Gall bladder disease (4) Pneumonia (5) Stomach problems Family History FH: heart disease FH: lung disease FHx: cancer FHx: gallbladder disease Hypertension Social History Smoking Status: Current Every Day Smoker Alcohol Use: none Drug Use: none Marital Status: Housing Status: lives with family Occupation Status: employed Current/Historical Medications Scheduled Amitriptyline Hcl (Elavil), 10 MG PO HS Bupropion Hcl (Wellbutrin), 75 MG PO DAILY Scheduled PRN Albuterol Hfa (Ventolin Hfa), 2 PUFFS INH Q6H PRN for Shortness of Breath Fluticasone Furoate-Vilanterol (Breo Ellipta), 1 DOSE INH DIRECTED PRN for SOB/Wheezing Sumatriptan Succinate (Sumatriptan Succinate), 6 MG IM UD PRN for Migraine Physical Exam Vital Signs Date Time Temp Pulse Resp B/P (MAP) Pulse Ox O2 Delivery O2 Flow Rate FiO2 09/03/17 00:07 82 17 126/89 96 09/02/17 22:25 36.3 91 18 138/83 95 Room Air Physical Exam VITALS: Vitals are noted on the nurse's note and reviewed by myself. Vital signs stable. GENERAL: This is a 37-year-old female, in no acute distress, nondiaphoretic, well-developed well-nourished. SKIN: The skin was without rashes, erythema, edema, or bruising. MUSCULOSKELETAL: There is tenderness to palpation along the medial aspect of the right knee. Full range of motion of the knee. Ligamentous exam limited due to patient's discomfort. No tenderness of the calf noted. No erythema, swelling or palpable cord. NEURO: Patient was alert and oriented to person place and time. Distal sensation intact. Medical Decision & Procedures ER Provider Diagnostic Interpretation: RIGHT KNEE 3 VIEWS FINDINGS: There is no fracture or dislocation. Soft tissues are unremarkable. No radiopaque foreign bodies. No significant knee effusion. IMPRESSION: No fractures within the right knee. US VENOUS RIGHT LOWER EXTREMITY: No evidence of DVT in the visualized veins of the right lower extremity. Radiologist: Rama Cardoso MD Medications Administered Medications (Trade) Dose Ordered Sig/Joon Route Start Time Stop Time Status Last Admin Dose Admin Acetaminophen (Tylenol Tab) 1,000 mg NOW STAT PO 09/02/17 23:21 09/02/17 23:22 DC 09/02/17 23:42 1,000 MG Medical Decision Differential diagnosis includes fracture, contusion, sprain, meniscal injury, ligamentous injury, DVT, among others. The patient was evaluated as above. X-ray of the knee was obtained and read by radiology without acute findings. Ultrasound was performed and read by statrad with no evidence of DVT. Patient was advised to follow-up with orthopedics for further evaluation of her knee pain. She was placed in an Omar wrap. She has been walking without difficulty. Conservative measures were discussed with the patient. She verbalized understanding of my assessment and treatment plan and was discharged home in good condition. Medication Reconcilliation Current Medication List: was personally reviewed by ks Blood Pressure Screening Patient's blood pressure: Normal blood pressure Impression Primary Impression: Right knee pain Departure Information Dispostion Home / Self-Care Condition GOOD Referrals Arnold Bosch M.D.(ARIEL) (PCP) Franck Aguilar M.D. Patient Instructions My [facility] Additional Instructions You have been treated in the Emergency Department for Knee Pain. For pain control, you can use the following [id number] medicines (if >12 yo): - Regular strength (325mg/tab) Tylenol (acetaminophen) 2 tabs every 4-6 hours as needed. Do not exceed 12 tablets in a 24 hour period. Avoid taking more than 4 grams (4000 mg) of Tylenol per day. This includes any other sources of acetaminophen you may take on a regular basis. - Regular strength (200 mg/tab) Advil (ibuprofen) 1-2 tabs every 4-6 hours as needed. Do not exceed a dose of 3200 mg per day. If this is a recent injury (<24 hrs), ice can be applied to the area of pain for the first 3 days to help decrease pain and inflammation. Ice massages can be performed by freezing water in a paper cup, peeling back the cup to expose the ice and then massaging over the affected area. Contact orthopedics to schedule a follow-up regarding your knee pain. Wear the Omar wrap when up and walking around to help with pain. Return to the Emergency Department if your current symptoms worsen despite treatment course outlined above. Problem Qualifiers Primary Impression: Right knee pain Chronicity: acute Qualified Codes: M25.561 - Pain in right knee
[2017-09-03 00:07] VITALS: BP 126/89; PULSE 82; O2SAT 96
--- NOTE | 2017-09-03 06:33 | DIAGNOSTIC IMAGING REPORT ---
ULTRASOUND R VENOUS DOPP LOWER EXT UNILAT CLINICAL HISTORY: right knee pain COMPARISON STUDY: No previous studies for comparison. FINDINGS: Real-time and color flow Doppler imaging were performed. Flow was seen within the femoral, popliteal and calf veins with no intraluminal thrombus demonstrated. The saphenous vein is patent. IMPRESSION: No evidence of right lower extremity DVT. Electronically signed by: Derik Fan M.D. 09/03/2017 6:31 AM Dictated Date/Time: 09/03/2017 6:31 AM
== END 2017-09-03 00:08 | disposition home or self-care (01) ==
LOC: C.EDB 22:23
DX: M25.561 Pain in right knee (principal); F17.200 Nicotine dependence, unspecified, uncomplicated; J45.909 Unspecified asthma, uncomplicated